=== PATIENT | male | born 1980 | race Hispanic/Latino ===

== ENCOUNTER → 2024-02-08 | Outpatient (CLI) | payer BC ==
[2024-02-08 22:12] VITALS: PULSE 76; RESP 18
[2024-02-08 23:00] VITALS: PULSE 82; RESP 12
[2024-02-08 23:30] VITALS: PULSE 74; RESP 20
[2024-02-09] VITALS (10 sets, daily range): PULSE 68–88; RESP 4–16
== END | disposition home or self-care (01) ==
LOC: SLP 20:48
PROVIDERS: ATTEND Nurse Practitioner Family
DX: G47.33 Obstructive sleep apnea (adult) (pediatric) (principal)
CPT/HCPCS: 95811